=== PATIENT | male | born 2000 | race African-American/Black ===

== ENCOUNTER 2020-11-06 20:58 | Emergency (ER) | payer OTHER ==
[2020-11-06] MEDS ORDERED: CEFAZOLIN 2 GM/D5W RTU 2 GM/50 ML RTUPB IV ONE (21:08)
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
[2020-11-06] MEDS ORDERED: LIDOCAINE 1% INJ-PF (10 MG/ML) 30 ML SDV INJ ONE (23:02)
[2020-11-06] MEDS ORDERED: ACETAMINOPHEN WITH CODEINE #3 TABLET PO ONE (23:02)
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
[2020-11-07] MEDS ORDERED: LIDOCAINE 1% INJ-PF (10 MG/ML) 30 ML SDV ONE (00:41)
[2020-11-07 04:02] VITALS: BP 169/113
== END 2020-11-07 04:02 | disposition home or self-care (01) ==
LOC: ER 20:58
DX: S62.641B Nondisplaced fracture of proximal phalanx of left index finger, initial encounter for open fracture (principal); W34.00XA Accidental discharge from unspecified firearms or gun, initial encounter; Y93.89 Activity, other specified; Z20.822 Contact with and (suspected) exposure to COVID-19
CPT/HCPCS: 99284; 96365; 87635; 73140; 12036; J3490; J0690; C9803